=== PATIENT | male | born 1995 | race Hispanic/Latino ===

== ENCOUNTER 2017-10-18 17:37 | Emergency (ER) | payer SELFPAY ==
[~2017-10-18] VITALS: Ht 172.7 cm; Wt 88.6 kg
[~2017-10-18 17:37] MED LIST: ABILIFY2 MG PO; AMOXICILLIN500 MG OR; AMOXICILLIN500 MG PO; AMOXICILLIN875 MG PO; ASTELIN NASA137 MCG; AZELASTINE0.1 %; BENADRYL25 M1 PO; CONCERTA27 MG PO; FLONASE NASAL50 MCG; FLUARIX QUADRIV1 INJ IM; FLUZONE SPLT1 M1 IM; INTUNIV2 MG OR; INTUNIV3 MG OR; MOTRIN600 MG/TAB PO; MUCINEX600 MG PO; NAPROSYN250 MG PO; NO HOME MEDS; QUILLIVANT XR PO; RANITIDINE75 M1 PO; SINGULAIR4 MG OR; VYVANSE30 MG OR; VYVANSE40 MG PO; ZYRTEC-D AL1 OR
[2017-10-18 18:48] LABS: INFLUENZA A NONE DETECTED (NONE DETECT); INFLUENZA B NONE DETECTED (NONE DETECT)
[2017-10-18] MEDS ORDERED: ROBITUSSIN AC10 ML PO (19:16)
[2017-10-18] MEDS ORDERED: CEPHALEXIN500 MG PO (19:16)
[2017-10-18 19:33] VITALS: BP 114/75
== END 2017-10-18 19:33 | disposition home or self-care (01) | DRG 153 ==
LOC: ED 17:37
PROVIDERS: Emergency Medicine
DX: J06.9 Acute upper respiratory infection, unspecified (principal); Z87.891 Personal history of nicotine dependence

== ENCOUNTER 2017-10-23 13:39 | Emergency (ER) | payer SELFPAY ==
[~2017-10-23] VITALS: Ht 172.7 cm; Wt 90.9 kg
[~2017-10-23 13:39] MED LIST changes: +CEPHALEXIN500 MG PO; +ROBITUSSIN AC10 ML PO
[2017-10-23] MEDS ORDERED: PROAIR HFA108 MCG/AC PO (13:54)
[2017-10-23] MEDS ORDERED: ZPAK PO (13:54)
[2017-10-23 14:04] VITALS: BP 153/73
== END 2017-10-23 14:12 | disposition home or self-care (01) | DRG 153 ==
LOC: ED 13:39
DX: J06.9 Acute upper respiratory infection, unspecified (principal); R05 Cough; F17.290 Nicotine dependence, other tobacco product, uncomplicated

== ENCOUNTER 2018-05-10 23:07 | Emergency (ER) | payer SELFPAY ==
[~2018-05-10] VITALS: Ht 172.7 cm; Wt 90.0 kg
[~2018-05-10 23:07] MED LIST changes: +PROAIR HFA108 MCG/AC PO; +ZPAK PO
[2018-05-10] MEDS ORDERED: KEFLEX500 M1 PO (23:59)
[2018-05-10] MEDS ORDERED: VOLTAREN - GENE75 MG PO (23:59)
[2018-05-11 00:14] VITALS: BP 138/81
== END 2018-05-11 00:17 | disposition home or self-care (01) | DRG 605 ==
LOC: ED 23:07
DX: S91.331A Puncture wound without foreign body, right foot, initial encounter (principal); W45.0XXA Nail entering through skin, initial encounter; Y93.H3 Activity, building and construction; Y92.69 Other specified industrial and construction area as the place of occurrence of the external cause; Y99.0 Civilian activity done for income or pay

== ENCOUNTER 2018-07-09 02:18 | Emergency (ER) | payer SELFPAY ==
[~2018-07-09] VITALS: Ht 172.7 cm; Wt 91.4 kg
[~2018-07-09 02:18] MED LIST changes: +KEFLEX500 M1 PO; +VOLTAREN - GENE75 MG PO
[2018-07-09] MEDS ORDERED: TORADOL PO (03:14)
[2018-07-09] MEDS ORDERED: XYZAL5 MG PO (03:14)
[2018-07-09 03:26] VITALS: BP 138/59
== END 2018-07-09 03:27 | disposition home or self-care (01) | DRG 313 ==
LOC: ED 02:18
DX: R07.89 Other chest pain (principal); J30.9 Allergic rhinitis, unspecified